=== PATIENT | female | born 1980 | race Caucasian/White ===

== ENCOUNTER 2017-01-04 16:28 | Emergency (ER) | payer SELFPAY ==
[~2017-01-04] VITALS: Ht 154.9 cm; Wt 69.8 kg
[~2017-01-04 16:28] MED LIST: BACTRIM,SEPT1 TABLET PO
[2017-01-04] MEDS ORDERED: PREDNISONE20 MG PO (18:49)
[2017-01-04] MEDS ORDERED: ZANTAC150 MG PO (18:49)
[2017-01-04 19:55] VITALS: BP 135/89
== END 2017-01-04 19:56 | disposition home or self-care (01) ==
LOC: EME 16:28
DX: L25.9 Unspecified contact dermatitis, unspecified cause (principal)
CPT/HCPCS: 99281; 99283

== ENCOUNTER 2017-01-06 12:28 | Emergency (ER) | payer SELFPAY ==
[~2017-01-06] VITALS: Ht 154.9 cm; Wt 68.0 kg
[~2017-01-06 12:28] MED LIST changes: +PREDNISONE20 MG PO; +ZANTAC150 MG PO
[2017-01-06 14:17] LABS: EOSINOPHIL (%) 0 % (0-5); HEMATOCRIT 43.5 % (36.0-46.0); IMMATURE GRANULOCYTE (%) 0.7 % (0.0-0.7); IMMATURE GRANULOCYTE COUNT 0.1 K/uL; LYMPHOCYTE COUNT 0.7 K/uL (1.0-2.8); MCH 28.7 PG (29.0-34.0); MCHC 32.9 G/DL (30.0-36.0); MCV 87.3 FL (83-99); MEAN PLAT.VOLUME 12.5 uM^3 (9.5-12.4); MONOCYTE (%) 0.5 % (3-12); MONOCYTE COUNT 0.1 K/uL (0-0.8); PLATELET COUNT 209 K/uL (156-360); RBC DIS.WIDTH-CV 12.7 % (11.8-14.6); RED BLOOD COUNT 4.98 M/uL (3.80-5.20); WHITE BLOOD COUNT 12.9 K/uL (4.1-10.2)
[2017-01-06 14:26] LABS: CHLORIDE 108 mEq/L (99-109); POTASSIUM 3.7 mEq/L (3.7-5.4); SODIUM 140 mEq/L (136-147)
[2017-01-06 14:29] LABS: GLUCOSE 146 mg/dL (70-99)
[2017-01-06 14:30] LABS: ANION GAP 12 MEQ/L (2-14)
[2017-01-06 14:31] LABS: TOTAL BILIRUBIN 0.4 mg/dL (0.0-1.0)
[2017-01-06 14:32] LABS: ALKALINE PHOSPHATASE 65 IU/L (3-129); GFR ESTIMATE (CALCULATED) > 59 mL/min/
[2017-01-06 14:33] LABS: UREA NITROGEN (BUN) 8 mg/dL (9-23)
[2017-01-06 14:41] LABS: QUANTITATIVE HCG < 4.0 MIU/ML
[2017-01-06] MEDS ORDERED: ATARAX,VISTARIL25 MG PO ×2 (14:48→14:50)
[2017-01-06 15:04] VITALS: BP 118/94
== END 2017-01-06 15:05 | disposition home or self-care (01) ==
LOC: EME 12:28
PROVIDERS: Physician Assistant
DX: L30.9 Dermatitis, unspecified (principal); L71.9 Rosacea, unspecified; F17.200 Nicotine dependence, unspecified, uncomplicated
CPT/HCPCS: 80053; 84702; 85025; 99281; 99283; Q0177